=== PATIENT | female | born 1965 | race Caucasian/White ===

== ENCOUNTER → 2018-12-24 13:20 | Outpatient (CLI) | payer BC, SELFPAY ==
--- NOTE | 2018-12-24 13:30 | BI_ITS ---
MAMMOGRAPHY - BILATERAL SCREENING 3-D TOMOSYNTHESIS REASON FOR EXAM: Female, 53 years old. Bilateral Screening 3-D tomosynthesis PERTINENT HISTORY: Aunt with breast cancer.. TECHNIQUE: 2-D mammograms and 3-D Tomosynthesis of the breast (s) were performed. CAD was performed. COMPARISON: None. FINDINGS: The breast composition is heterogeneously dense that can obscure small breast masses. Scattered benign calcifications are seen. No dense spiculated masses or suspicious microcalcifications are identified. No architectural distortion is identified. There is no skin thickening or retraction. There has been no significant change since the prior study. BI/SCREEN MAMM (CAD) W/MARY BILAT IMPRESSION: No mammographic signs of malignancy. Routine yearly mammograms recommended. ASSESSMENT CATEGORY: BIRADS Category 1: Negative. A letter regarding these results will be sent to the patient by the facility within 30 days. FOLLOW UP RECOMMENDATION: Yearly follow up mammogram recommended. (A) Approximately 10% of breast cancers are not detected by mammography. A normal mammogram should not delay biopsy of a clinically suspicious abnormality. Electronically Signed: Charlie Schwab MD at 7:49 EDT , Service support ,
== END ==
PROVIDERS: Referring Provider Nurse Practitioner Women's Health; Visit Provider Nurse Practitioner Women's Health
DX: Z12.31 Encounter for screening mammogram for malignant neoplasm of breast (principal)
CPT/HCPCS: 77063; 77067

== ENCOUNTER → 2019-03-18 13:29 | Outpatient (CLI) | payer BC, SELFPAY ==
[2019-03-18 13:03] VITALS: BMI 35.3
[2019-03-18 13:57] LABS: Follicle Stimulating Hormone 73.7 mIU/mL
[2019-03-18 19:15] LABS: Chlamydia Trachomatis by PCR Negative (Negative); Neisserai gonorrhoeae by PCR Negative (Negative); Probe Check PASS; Sample Adequacy Control PASS; Specimen Processing Control PASS
== END ==
PROVIDERS: Referring Provider Nurse Practitioner Women's Health; Visit Provider Nurse Practitioner Women's Health
DX: N92.6 Irregular menstruation, unspecified (principal); N89.8 Other specified noninflammatory disorders of vagina
CPT/HCPCS: 36415; 83001; 87491; 87591

== ENCOUNTER → 2019-03-23 14:19 | Outpatient (CLI) | payer BC, SELFPAY ==
[2019-03-18 13:03] VITALS: BMI 35.3
--- NOTE | 2019-03-23 14:21 | US_ITS ---
STUDY: ULTRASOUND OF THE FEMALE PELVIS - COMPLETE REASON FOR EXAM: Female, 53 years old. Irregular menses. LMP: Unknown. TECHNIQUE: Transabdominal and Transvaginal TECHNICAL QUALITY: Adequate. COMPARISON: None. FINDINGS: The uterus is anteverted and is in a midline position. The uterus measures 9.2 x 5.0 x 4.2 cm. There is a Nabothian cyst of the cervix. The endometrium measures 3 mm in thickness, and is hyperechoic. There is no demonstrated endometrial mass. There is no demonstrated myometrial mass. I.U.D. - The patient does not have an I.U.D. The right ovary is not visualized. There is no visualized right adnexal mass or complex lesion. The left ovary is visualized. The left ovary measures 3.0 x 1.9 x 1.4 cm. There is no left ovarian cyst or ovarian mass. There is no visualized left adnexal mass or complex lesion. There is normal arterial and normal venous vascularity. There is no fluid in the cul-de-sac. The pre void volume of the bladder was to 83 ml. The urinary bladder is grossly normal. Polycystic ovary disease: No. US/Transvaginal Non- IMPRESSION: 1. Normal uterus and left ovary. 2. Nonvisualization of the right ovary. Electronically Signed: Donavon Paez DO at 23:49 EDT Tel [phone], Service support ,
--- NOTE | 2019-03-23 14:21 | US_ITS ---
STUDY: ULTRASOUND OF THE FEMALE PELVIS - COMPLETE REASON FOR EXAM: Female, 53 years old. Irregular menses. LMP: Unknown. TECHNIQUE: Transabdominal and Transvaginal TECHNICAL QUALITY: Adequate. COMPARISON: None. FINDINGS: The uterus is anteverted and is in a midline position. The uterus measures 9.2 x 5.0 x 4.2 cm. There is a Nabothian cyst of the cervix. The endometrium measures 3 mm in thickness, and is hyperechoic. There is no demonstrated endometrial mass. There is no demonstrated myometrial mass. I.U.D. - The patient does not have an I.U.D. The right ovary is not visualized. There is no visualized right adnexal mass or complex lesion. The left ovary is visualized. The left ovary measures 3.0 x 1.9 x 1.4 cm. There is no left ovarian cyst or ovarian mass. There is no visualized left adnexal mass or complex lesion. There is normal arterial and normal venous vascularity. There is no fluid in the cul-de-sac. The pre void volume of the bladder was to 83 ml. The urinary bladder is grossly normal. Polycystic ovary disease: No. US/Pelvic (Non ) IMPRESSION: 1. Normal uterus and left ovary. 2. Nonvisualization of the right ovary. Electronically Signed: Donavon Paez DO at 23:49 EDT Tel [phone], Service support ,
== END ==
PROVIDERS: Family Provider Internal Medicine; PCP Internal Medicine; Referring Provider Nurse Practitioner Women's Health; Visit Provider Nurse Practitioner Women's Health
DX: N92.6 Irregular menstruation, unspecified (principal)
CPT/HCPCS: 76830; 76856; 93976

== ENCOUNTER → 2019-04-01 14:15 | Outpatient (CLI) | payer BC, SELFPAY ==
[2019-04-01 14:02] VITALS: BMI 33.8
--- NOTE | 2019-04-01 14:15 | EMB_PTH ---
PATIENT: ELY BAILEY LOC: [facility] U#:[id number] AGE/SX: 59/F ROOM: RE04/01/[address]: KATY Bobo : 1965 BED: DIS: SPEC #: [id number] RECD: 04/01/19 16:50 STATUS: OLEG RELauren #: [id number] TANJA: 04/01/19 14:[address]: Jordyn Retana NP DEPT: SURGICAL PATHOLOGY RECD BY: Ministerio Allan ENTERED: 04/02/19 08:48 SP TYPE: ENDOM BX/C INDIO DR: Dr. Sabrina Odell MD Tissues: Endometrium, NOS Procedures: Surgery Specimen Level IV HEADER OPERATION: Endometrial biopsy PRE-OP DIAGNOSIS: Postmenopausal bleeding TISSUE SUBMITTED: Endometrial lining MICROSCOPIC DIAGNOSIS Endometrial lining, biopsy: Weakly proliferative to inactive endometrium with focal gland breakdown. Rare fragments of benign superficial endocervix. AM:vida 04/03/19 MICROSCOPIC DESCRIPTION Slides are reviewed. GROSS DESCRIPTION Received is one container labeled with the patient's name and not further designated. The specimen consists of multiple irregular fragments of light pink-pfeiffer soft tissue that in aggregate measure 2 x 0.6 x 0.1 cm. The specimen is totally submitted in one cassette. / AM:vida 04/02/19 TC:5 CPT: 49220
== END ==
PROVIDERS: Family Provider Internal Medicine; PCP Internal Medicine; Referring Provider Nurse Practitioner Women's Health; Visit Provider Nurse Practitioner Women's Health
DX: N95.0 Postmenopausal bleeding (principal)
CPT/HCPCS: 88305

== ENCOUNTER → 2020-03-21 | Outpatient (CLI) | payer BC, SELFPAY ==
[2020-03-21 14:57] VITALS: BMI 34.7
[2020-03-25 09:47] LABS: HPV APTIMA, High Risk Negative (Negative)
== END | disposition home or self-care (01) ==
PROVIDERS: PCP Internal Medicine; Visit Provider Obstetrics & Gynecology
DX: Z12.4 Encounter for screening for malignant neoplasm of cervix (principal)
CPT/HCPCS: 87624; 88175; G0145

== ENCOUNTER → 2020-06-14 17:30 | Outpatient (CLI) | payer BC, SELFPAY ==
[2020-03-21 14:57] VITALS: BMI 34.7
--- NOTE | 2020-06-14 16:42 | BI_ITS ---
MAMMOGRAPHY - BILATERAL SCREENING REASON FOR EXAM: Female, 55 years old. Routine annual screening examination. PERTINENT HISTORY: Sister with breast cancer. Aunt with breast cancer. TECHNIQUE: Digital bilateral breast mary (3D mammographic acquisition) in the CC and MLO projections. 2-D mediolateral oblique (MLO) and craniocaudad (CC) views of both breasts were obtained. CAD: Full Field Digital Mammography with Computer Added Detection was performed. COMPARISON: Comparison is made with prior examination dated 12/24/2018. FINDINGS: Breast Composition: The breasts are heterogeneously dense, which may obscure small masses. There are no dominant masses or suspicious calcifications. Stable small benign-appearing bilateral axillary lymph nodes. No other significant abnormalities are identified. There has been no significant change since the prior study. BI/SCREEN MAMM (CAD) W/MARY BILAT IMPRESSION: Stable bilateral screening mammogram. Yearly follow-up mammogram recommended. (A) ASSESSMENT CATEGORY: BIRADS Category 2: Benign. A letter regarding these results will be sent to the patient by the facility within 30 days. Approximately 10% of breast cancers are not detected by mammography. A normal mammogram should not delay biopsy of a clinically suspicious abnormality. [id number] Electronically Signed: Fish Song, at 8:41 EST , Service support ,
== END ==
PROVIDERS: PCP Internal Medicine; Referring Provider Obstetrics & Gynecology; Visit Provider Obstetrics & Gynecology
DX: Z12.31 Encounter for screening mammogram for malignant neoplasm of breast (principal); Z80.3 Family history of malignant neoplasm of breast
CPT/HCPCS: 77063; 77067

== ENCOUNTER → 2020-11-07 | Outpatient (CLI) | payer BC, SELFPAY ==
[2020-11-07 08:33] VITALS: BMI 34.7
--- NOTE | 2020-11-07 08:45 | EMB_PTH ---
PATIENT: ELY BAILEY [facility] U#:[id number] AGE/SX: 55/F ROOM: RE11/07/[address]: KATY Bobo : 1965 BED: DIS: 11/07/2020 SPEC #: [id number] RECD: 11/07/20 08:45 STATUS: OLEG RELauren #: [id number] TANJA: 11/07/20 08:[address]: Jordyn Retana NP DEPT: SURGICAL PATHOLOGY RECD BY: Suzette Canela ENTERED: 11/07/20 13:44 SP TYPE: ENDOM BX/C INDIO DR: Dr. Sabrina Odell MD Tissues: Endometrium, NOS Procedures: Surgery Specimen Level IV HEADER OPERATION: Endometrial biopsy PRE-OP DIAGNOSIS: PMB TISSUE SUBMITTED: Endometrial biopsy MICROSCOPIC DIAGNOSIS Endometrial biopsy: Proliferative endometrium. SJ:vida 11/08/2020 MICROSCOPIC DESCRIPTION Slides are reviewed. GROSS DESCRIPTION Received is one container labeled with the patient's name and not further designated. The specimen consists of multiple fragments of hemorrhagic soft tissue that in aggregate measure 2 x 1 x 0.2 cm. The specimen is totally submitted in one cassette. / SJ:vida 11/07/20 TC:4 CPT: 22796
== END | disposition home or self-care (01) ==
LOC: LABSPEC 12:48
PROVIDERS: PCP Internal Medicine; Visit Provider Nurse Practitioner Women's Health
DX: N95.0 Postmenopausal bleeding (principal)
CPT/HCPCS: 88305

== ENCOUNTER → 2020-11-09 10:40 | Outpatient (CLI) | payer BC, SELFPAY ==
[2020-11-07 08:33] VITALS: BMI 34.7
--- NOTE | 2020-11-09 10:43 | US_ITS ---
STUDY: ULTRASOUND OF THE FEMALE PELVIS - COMPLETE REASON FOR EXAM: Female, 55 years old. Bleeding LMP: The patient is perimenopausal. TECHNIQUE: Transabdominal and Transvaginal TECHNICAL QUALITY: Adequate. COMPARISON: Comparison is made with prior examination of 03/23/2019. FINDINGS: The uterus is anteverted and is in a midline position. The uterus measures 9.1 cm x 5.1 cm x 4.2 cm. There is a Nabothian cyst of the cervix. The endometrium is thickened and measures 8 mm in thickness, and is hyperechoic. There is no demonstrated endometrial mass. There is no demonstrated myometrial mass. I.U.D. - The patient does not have an I.U.D. The right ovary is visualized. The right ovary measures 3.4 cm x 3.2 cm x 1.5 cm. There is no right ovarian cyst or ovarian mass. There is no visualized right adnexal mass or complex lesion. There is normal arterial and normal venous vascularity. The left ovary is visualized. The left ovary measures 3.1 cm x 2.3 cm x 1.2 cm. There is no left ovarian cyst or ovarian mass. There is no visualized left adnexal mass or complex lesion. There is normal arterial and normal venous vascularity. There is no fluid in the cul-de-sac. The pre void volume of the bladder was 48.5 ml. US/Pelvic (Non ) IMPRESSION: Thickened endometrium Electronically Signed: Fish Song MD at 15:23 EDT , Service support ,
--- NOTE | 2020-11-09 10:43 | US_ITS ---
STUDY: ULTRASOUND OF THE FEMALE PELVIS - COMPLETE REASON FOR EXAM: Female, 55 years old. Bleeding LMP: The patient is perimenopausal. TECHNIQUE: Transabdominal and Transvaginal TECHNICAL QUALITY: Adequate. COMPARISON: Comparison is made with prior examination of 03/23/2019. FINDINGS: The uterus is anteverted and is in a midline position. The uterus measures 9.1 cm x 5.1 cm x 4.2 cm. There is a Nabothian cyst of the cervix. The endometrium is thickened and measures 8 mm in thickness, and is hyperechoic. There is no demonstrated endometrial mass. There is no demonstrated myometrial mass. I.U.D. - The patient does not have an I.U.D. The right ovary is visualized. The right ovary measures 3.4 cm x 3.2 cm x 1.5 cm. There is no right ovarian cyst or ovarian mass. There is no visualized right adnexal mass or complex lesion. There is normal arterial and normal venous vascularity. The left ovary is visualized. The left ovary measures 3.1 cm x 2.3 cm x 1.2 cm. There is no left ovarian cyst or ovarian mass. There is no visualized left adnexal mass or complex lesion. There is normal arterial and normal venous vascularity. There is no fluid in the cul-de-sac. The pre void volume of the bladder was 48.5 ml. US/Transvaginal Non- IMPRESSION: Thickened endometrium Electronically Signed: Fish Song MD at 15:23 EDT , Service support ,
== END ==
PROVIDERS: PCP Internal Medicine; Referring Provider Nurse Practitioner Women's Health; Visit Provider Nurse Practitioner Women's Health
DX: N95.0 Postmenopausal bleeding (principal)
CPT/HCPCS: 76830; 76856

== ENCOUNTER 2021-01-17 08:59 | Day surgery (SDC) | payer BC, SELFPAY ==
[2020-12-13 11:33] VITALS: BMI 34.7
--- NOTE | 2021-01-11 14:06 | EKG12_ITS ---
Test Reason : PRE OP Blood Pressure : / mmHG Vent. Rate : 070 BPM Atrial Rate : 070 BPM P-R Int : 162 ms QRS Dur : 090 ms QT Int : 434 ms P-R-T Axes : 038 -30 -23 degrees QTc Int : 468 ms Normal sinus rhythm Left axis deviation Nonspecific T wave abnormality Septal OH, age undetermined, cannot be excluded Abnormal ECG Confirmed by CINTHIA YBARRA, RADHA ([id number]), make up editor NEDA ROMERO ([id number]) on 01/12/2021 10:43:05 AM Referred By: Jackie Kessler Confirmed By:RADHA VICENTE MD
[2021-01-11 14:53] LABS: Absolute Lymphocyte Count 2.04 X10^3/uL (0.83-4.51); Absolute Neutrophil Count 3.9 X10^3/uL (2.0-7.7); Basophil# 0.03 X10^3/uL; Basophil% 0.5 % (0-1); Eosinophil# 0.13 X10^3/uL; Hemoglobin 13.1 g/dL (12.0-15.0); Lymphocyte # 2.04 X10^3/ul (0.83-4.51); Lymphocyte % 31.2 % (19-41); Mean Corp Hgb Conc 32.8 g/dL (32-36); Mean Corpuscular Hgb 29.8 pg (27.0-32.0); Mean Corpuscular Volume 91.1 fL (81-99); Mean Platelet Vol. 9.1 fl (6.2-12.0); Monocyte# 0.45 X10^3/uL; Monocyte% 6.9 % (0-10); NRBC Flagged by Analyzer 0 % (0-5); Neutrophil # 3.87 X10^3/uL (2.7-7.7); Neutrophil % 59.1 % (47-70); Platelet Count 370 K/mm3 (150-450); RBC Distribution Width CV 13.8 % (11.6-14.6); RBC Distribution Width SD 46.6 fl (35.1-43.9); Red Blood Count 4.39 M/mm3 (4.2-5.4); White Blood Count 6.5 K/mm3 (4.4-11.0)
[2021-01-11 15:38] LABS: ALB/GLOB Ratio 1.1 RATIO (0.9-2.4); AST(SGOT) 13 U/L (15-37); Alanine Aminotransfer ALT/SGPT 21 U/L (13-56); Alkaline Phosphatase 96 U/L (45-117); Anion Gap 6 (5-15); BUN 11 mg/dL (7-18); BUN/Creat Ratio 13.8 RATIO (10-20); Chloride 101 mmol/L (98-107); EST Glomerular Filtration Rate 79 mL/min (>60); Est Glom Filt Rate - Afr Amer 96 mL/min (>60); Globulin 3.7 g/dL (2.2-4.2); Glucose 111 mg/dL (74-106); Potassium 2.8 mmol/L (3.5-5.1); Protein, Total 7.7 g/dL (6.4-8.2); Sodium Level 138 mmol/L (136-145)
[2021-01-16 17:37] LABS: Potassium 3.1 mmol/L (3.5-5.1)
[2021-01-17] VITALS (8 sets, daily range): BP systolic 116–136; BP diastolic 72–99; PULSE 66–72; RESP 14–18; TEMP 36.3–36.7; O2SAT 93–100; BMI 34.7
--- NOTE | 2021-01-17 | EMB_PTH ---
PATIENT: ELY BAILEY LOC: [facility] U#:[id number] AGE/SX: 55/F ROOM: RE01/17/[address]: Dr. Jackie Kessler MD : 1965 BED: DIS: 01/17/2021 SPEC #: [id number] RECD: 01/17/21 12:14 STATUS: OLEG DOTSON #: [id number] TANJA: 01/17/21 00:[address]: Jackie Kessler DEPT: SURGICAL PATHOLOGY RECD BY: Jaime Boateng ENTERED: 01/17/21 12:14 SP TYPE: ENDOM BX/C OTHR DR: Dr. Sabrina Odell MD Tissues: Endometrium, NOS Procedures: Surgery Specimen Level IV HEADER OPERATION: Hysteroscopy, D & C Symphion, polypectomy PRE-OP DIAGNOSIS: Postmenopausal bleeding TISSUE SUBMITTED: Endometrial curettings and polyp MICROSCOPIC DIAGNOSIS Endometrial curettings and polyp, D & C and polypectomy: Polypoid fragments of endometrial tissue with simple endometrial hyperplasia without atypia. See comment. SJ:vida 01/18/2021 COMMENT Many of the fragments may represent fragments of endometrial polyp. Please make reference to previous specimen ([id number]) endometrial biopsy with diagnosis of ?proliferative endometrium.? Case has been reviewed in consultation with Dr. Mayo who concurs with the above diagnosis. IDC:AM MICROSCOPIC DESCRIPTION Slides are reviewed. GROSS DESCRIPTION Received in fixative is one container labeled with the patient's name and designated endometrial curettings and polyp. The specimen consists of multiple irregular fragments of light pink-pfeiffer soft tissue that in aggregate measure 3 x 2.5 x 0.2 cm. The specimen is totally submitted in one cassette. / AM:vida 01/17/21 TC:5 CPT: 68338
--- NOTE | 2021-01-17 07:35 | PCM.HP.BLA ---
History and Physical Date of Admission: 01/17/21 Intake Vital Signs 12/13/20 11:32 12/13/20 11:33 Height 5 ft 2 in Weight: 191 lb BMI 34.9 34.7 BP 118/70 Intake Visit Reasons: review u/s Chief Complaint: u/s results dx [facility] Director Client Services Required: No Is patient in pain?: No Allergies No Known Allergies Allergy (Verified 11/07/20 08:30) Medications fluticasone propionate 50 mcg/actuation nasal spray,suspension 1 spray INTRANASAL QDAY 11/28/17 [History Confirmed 12/13/20] hydrochlorothiazide 25 mg tablet 25 mg PO QAM 11/28/17 [History Confirmed 12/13/20] levocetirizine 5 mg tablet 5 mg PO QHS 11/28/17 [History Confirmed 12/13/20] levothyroxine 112 mcg tablet 112 mcg PO QDAY 11/28/17 [History Confirmed 12/13/20] metoprolol tartrate 50 mg tablet 50 mg PO BID 11/28/17 [History Confirmed 12/13/20] trazodone 50 mg tablet 50 mg PO QDAY 11/28/17 [History Confirmed 12/13/20] bupropion HCl 150 mg tablet,12 hr sustained-release 150 mg PO DAILY 03/21/20 [History Confirmed 12/13/20] venlafaxine 150 mg capsule,extended release 24 hr 150 mg PO QDAY #90 cap 06/22/20 [Rx Confirmed 12/13/20] potassium chloride 8 mEq tablet,extended release 8 meq PO DAILY 11/07/20 [History Confirmed 12/13/20] simvastatin 10 mg tablet 10 mg PO DAILY 11/07/20 [History Confirmed 12/13/20] Is last menstrual period known: No Post menopausal: Yes Patient : No : No [facility] Medical History (Updated 12/17/20 @ 09:[address] Jackie Kessler MD) Anxiety and depression Asthma Hypertension Hypothyroidism Migraines Obstructive sleep apnea Peptic ulcer disease Seasonal allergies Thyroid disorder Surgical History History of carpal tunnel surgery S/P bilateral foot surgery Family History Mother Hypertension Father Hypertension Congestive heart failure Sister Breast cancer Social History Smoking Status: Never smoker alcohol intake: current details: social substance use type: does not use caffeine: Yes what type of physical activity do you participate in: walking frequency: 1-2 times per week seatbelt use: always do you feel safe at home: Yes additional social history: [employer] Patient works at [employer] HPI review u/s Details: ELY BAILEY is a 55 year old who presents for postmenopausal bleeding. It has been several years since her last menses and she had menopausal symptoms therefore was diagnosed as being menopausal and then recently developed some vaginal bleeding. She was evaluated with an ultrasound which showed a thickened lining and endometrial biopsy showed proliferative endometrium and had an unclear diagnosis. She was referred by the nurse practitioner for surgical evaluation for complete sampling via D&C. Female Reproductive History Menopausal Symptoms: No night sweats Pregancy History 3 Elective abortions Hx Para 2 Spontaneous abortions Hx # Term Pregnancies Ectopic pregnancies Hx # Pregnancies Multiple births # of living children Past Pregnancies Del. Date Name GA/Weeks Outcome Route Bth Weight Gen Labor Lgth Anesthesia Del Locatn Provider FOB Unknown 1992 Carlos live - full term Unknown 2000 Denny live - full term ROS Const Constitutional: Denies fatigue, night sweats, weight gain or weight loss ENT ENT: Reports system reviewed and no additional complaints, except as documented Cardio Card: Denies chest pain Resp Resp: Denies cough or dyspnea GI GI: Reports as per HPI; Denies abdominal pain, constipation, nausea or vomiting : Denies nipple discharge, urinary frequency, urinary incontinence, urinary hesitancy, urinary urgency, vaginal discharge, vaginal dryness, vaginal odor or vaginal pruritus Musc Musc: Denies arthralgias, back pain or muscle weakness Skin Skin/Breast: Denies alopecia, change in hair, dry skin, breast mass, breast pain, breast skin changes or nipple discharge Neuro Neuro: Reports system reviewed and no additional complaints, except as documented Psych Psych: Reports system reviewed and no additional complaints, except as documented Endo Endo: Denies cold intolerance, excessive sweating, heat intolerance or polydipsia Julian/Lymph Hematologic/Lymphatic: Denies easy bleeding, Denies easy bruising and Denies lymphadenopathy Exam Const General: cooperative, healthy appearing, comfortable, no acute distress and well developed Orientation: alert HENMT Head: normal to inspection and normocephalic Ears: hearing grossly normal bilaterally and external ears normal Nose: external nose normal and nares normal Face and sinus: normal facial exam Neck Neck: normal visual inspection and no lymphadenopathy Thyroid: thyroid normal Chest Chest palpation & inspection: normal inspection of the chest Resp Effort & Inspection: normal respiratory effort Auscultation: clear to auscultation bilaterally Cardio Rate: regular rate Rhythm: regular rhythm Heart Sounds: S1 normal and S2 normal GI Inspection: normal to inspection and non-distended Palpation: soft and no hepatosplenomegaly Musc Other: gross motor intact no deficits, full bilateral strength Skin General: no rashes or lesions noted Neuro General: patient alert, patient awake, moves all extremities and no focal motor deficits Motor: muscle tone normal throughout Extrem General: normal to inspection and no pedal edema Psych Appearance: grossly normal Mental Status: mental status grossly normal Affect: normal affect Speech and Movement: speech and movement normal Coding Level of Care Code Off vis,new,level 4 Diagnoses Postmenopausal bleeding N95.0 Assessment and Plan Assessment and Plan (1) Postmenopausal bleeding: Status: Acute Comment: Plan D&C hysteroscopy, have symphion available. Plan - Dr. Jackie Kessler MD: After discussing the patient's diagnosis and treatment plan options, patient wishes to proceed with surgical management. I have discussed with the patient the risks, benefits, and alternatives of the procedure which include but are not limited to risks of anesthesia, bleeding, infection, possible damage to bowel, bladder, or surrounding vasculature which could lead to additional surgery to evaluate any complications. Patient agrees to procedure and wishes to proceed. ACOG/uptodate references given for additional information regarding procedure. UPDATE- I have seen the patient and performed any clinically relevant updates to the history and physical exam. Jackie Kessler MD
[2021-01-17] MEDS: Lactated Ringers 1,000 ML 100 ML IV (09:15)
--- NOTE | 2021-01-17 10:03 | OP.PCM_ITS ---
Problems Associated Problem List Diagnoses (1) Postmenopausal bleeding: Report of Operation Pre-Operative Diagnosis: see problem list Post-Operative Diagnosis: same Surgery/Procedure Performed:: D&C hysteroscopy symphion lead security officer: None Type of Anesthesia: Local MAC Special Medications: none Specimen's removed: EMC Drains: none Estimated Blood Loss (mL): 50 Fluids Replaced: crystalloid Description of Procedure: Patient was prepped and draped in a normal sterile fashion under MAC anesthesia. A weighted speculum was placed in the vagina and the anterior lip of the cervix was grasped with a single-tooth tenaculum. A paracervical block was placed with 1% lidocaine. Cervix was progressively dilated to allow passage of a 5 mm hysteroscope. The lining was fully visualized and noted to have a large polyp filling the entire lining. Uterine sounded to 8 cm. Using the symphion device, the polyp was progressively removed without complications. Direct visual curettage was performed using the device , and all specimens were sent to pathology. All instruments were removed from the vagina and excellent hemostasis was noted. Patient was awoken and taken to recovery in stable condition. Grafts/Implants Used: none Complications none Admit VTE Documentation VTE Present on Admission: No VTE Mechan Device Prophylaxis: SCD's Multi Select Codes Urinary/Genital Urinary/Genital CPT Codes: 03833 Hysteroscopy,EMC, Polypectomy
--- NOTE | 2021-01-17 10:06 | EX.PCM.DISCH ---
Discharge Instructions Procedure D&C Diet Discharge Diet: No restrictions Activity Discharge Activity: Return to Normal Activity, May Shower and May Take a Tub Bath (after 1 week) May resume sexual activity in: 1-2 weeks Weight Bearing Status: Weight bearing as tolerated Lifting Restrictions: none Dressing / Incision Call your doctor if you observe: Fever of 101 or Higher, Using more than 1 pad per hour, Shortness of breath and Uncontrolled pain Follow Up Care Please Follow Up With: Jackie Kessler MD When: Call [phone] to schedule appointment. Test Results: Test results from this visit will be discussed in further detail at your follow-up appointment, if applicable. Discharge Plan Admission Primary Reason for Your Visit: hysteroscopy Attending Provider: Jackie Kessler Primary Care Provider: Sabrina Odell Discharge Orders/Prescriptions Prescriptions: No Action metoprolol tartrate [Lopressor] 50 mg tablet 25 mg PO BID RF: 0 hydrochlorothiazide 25 mg tablet 25 mg PO QAM RF: 0 levothyroxine [Synthroid] 112 mcg tablet 112 mcg PO QDAY RF: 0 trazodone 50 mg tablet 50 mg PO QDAY RF: 0 levocetirizine [Xyzal] 5 mg tablet 5 mg PO QHS RF: 0 fluticasone propionate 50 mcg/actuation spray,suspension 1 spray INTRANASAL QDAY RF: 0 bupropion HCl [Wellbutrin SR] 150 mg tablet sustained-release 12 hr 300 mg PO DAILY RF: 0 potassium chloride 8 mEq tablet extended release 10 meq PO DAILY RF: 0 simvastatin [Zocor] 10 mg tablet 20 mg PO DAILY RF: 0 lisinopril 30 mg Tablet 30 mg PO DAILY RF: 0 albuterol 90 mcg/actuation Aerosol 90 mcg INHALATION PRN PRN (Reason: ASTHMA) RF: 0 venlafaxine [Effexor XR] 150 mg capsule,extended release 24hr 150 mg PO QDAY Qty: 90 RF: 3 Referrals / Follow Up: Sabrina Odell MD [Primary Care Provider] - Jackie Kessler MD [STAFF PHYSICIAN] - Disposition Disposition (needs filled in before D/C Order can be placed): Home, Self Care
[2021-01-17] MEDS: Lidocaine 1% (20 ml mdv) 20 ML Vial (10:16)
[2021-01-17] MEDS: Acetaminophen 500 MG Tablet 1000 MG PO (11:37)
== END 2021-01-17 12:02 | disposition home or self-care (01) ==
LOC: SDC 09:00 → AC 09:01
PROVIDERS: Anesthesiology; PCP Internal Medicine; Referring Provider Obstetrics & Gynecology; Visit Provider Obstetrics & Gynecology
PROC: 0UDB8ZZ Extraction of Endometrium, Via Natural or Artificial Opening Endoscopic (ICD-10-PCS; CPT 58558; principal; 2021-01-17 10:10)
DX: N95.0 Postmenopausal bleeding (principal); N85.01 Benign endometrial hyperplasia; I10 Essential (primary) hypertension; E03.9 Hypothyroidism, unspecified; F32.9 Major depressive disorder, single episode, unspecified; F41.9 Anxiety disorder, unspecified; Z79.899 Other long term (current) drug therapy
CPT/HCPCS: 00952; 58558; 36415; 80053; 84132; 85025; 86850; 86900; 86901; 88305; 93005; J7120; J2405

== ENCOUNTER 2021-06-28 16:45 | Outpatient (CLI) | payer BC, SELFPAY | END 2021-06-28 23:59 | disposition short-term general hospital (02) | LOC: LABSPEC 16:49 | PROVIDERS: PCP Internal Medicine; Visit Provider Nurse Practitioner Women's Health | DX: N76.0 Acute vaginitis (principal) | CPT/HCPCS: 87070; 87205 ==

== ENCOUNTER 2021-07-24 12:53 | Outpatient (CLI) | payer BC, SELFPAY ==
--- NOTE | 2021-07-24 12:57 | BI_ITS ---
MAMMOGRAPHY - BILATERAL SCREENING REASON FOR EXAM: Female, 56 years old. Routine annual screening examination. PERTINENT HISTORY: Sister with breast cancer. Aunt with breast cancer. TECHNIQUE: Digital bilateral breast mary (3D mammographic acquisition) in the CC and MLO projections. 2-D mediolateral oblique (MLO) and craniocaudad (CC) views of both breasts were obtained. CAD: Full Field Digital Mammography with Computer Added Detection was performed. COMPARISON: Comparison is made with prior study dated 06/14/2020 and 12/24/2018. FINDINGS: Breast Composition: The breasts are heterogeneously dense, which may obscure small masses. There are no dominant masses or suspicious calcifications. Stable benign-appearing bilateral axillary lymph nodes. No other significant abnormalities are identified. There has been no significant change since the prior study. BI/SCRN MAMM (CAD)W/MARY BILAT IMPRESSION: Stable bilateral screening mammogram. Yearly follow-up mammogram recommended. (A) ASSESSMENT CATEGORY: BIRADS Category 2: Benign. A letter regarding these results will be sent to the patient by the facility within 30 days. Approximately 10% of breast cancers are not detected by mammography. A normal mammogram should not delay biopsy of a clinically suspicious abnormality. [id number] Electronically Signed: Fish Song MD at 14:35 EST ,
== END 2021-07-24 23:59 | disposition home or self-care (01) ==
LOC: OPBI 12:55
PROVIDERS: PCP Internal Medicine; Visit Provider Obstetrics & Gynecology
DX: Z12.31 Encounter for screening mammogram for malignant neoplasm of breast (principal); Z80.3 Family history of malignant neoplasm of breast
CPT/HCPCS: 77063; 77067

== ENCOUNTER 2021-08-16 13:01 | Outpatient (CLI) | payer BC, SELFPAY ==
--- NOTE | 2021-08-16 13:04 | US_ITS ---
INDICATION: endo hyperplasia EXAMINATION: Ultrasound US Transvaginal Non-OB TECHNIQUE: Transvaginal (for optimal evaluation of the adnexa) pelvic ultrasound was performed. Grayscale, spectral waveform, and color flow Doppler evaluation of the adnexa. COMPARISON: Pelvis ultrasound from 11/09/2020. FINDINGS: UTERUS: Anteverted. The uterus measures 7.5 x 3.9 x 3.5 cm. There is no uterine mass. The endometrial stripe measures 3 mm in AP diameter which is within normal limits. RIGHT OVARY: Not visualized due to overlying structures. No right adnexal masses. LEFT OVARY: 2.1 x 1.3 x 1.6 cm. Non-enlarged, normal echogenicity. There is normal arterial inflow and venous outflow present in the left ovary. No left adnexal mass. FREE FLUID: None. US/Pelvic (Non ) IMPRESSION: Normal appearance of the endometrium on this study. Right ovary not visualized. The remainder of the exam is unremarkable. Electronically Signed: Guillermo Centeno, at 14:40 EDT ,
--- NOTE | 2021-08-16 13:04 | US_ITS ---
INDICATION: endo hyperplasia EXAMINATION: Ultrasound US Transvaginal Non-OB TECHNIQUE: Transvaginal (for optimal evaluation of the adnexa) pelvic ultrasound was performed. Grayscale, spectral waveform, and color flow Doppler evaluation of the adnexa. COMPARISON: Pelvis ultrasound from 11/09/2020. FINDINGS: UTERUS: Anteverted. The uterus measures 7.5 x 3.9 x 3.5 cm. There is no uterine mass. The endometrial stripe measures 3 mm in AP diameter which is within normal limits. RIGHT OVARY: Not visualized due to overlying structures. No right adnexal masses. LEFT OVARY: 2.1 x 1.3 x 1.6 cm. Non-enlarged, normal echogenicity. There is normal arterial inflow and venous outflow present in the left ovary. No left adnexal mass. FREE FLUID: None. US/Transvaginal Non- IMPRESSION: Normal appearance of the endometrium on this study. Right ovary not visualized. The remainder of the exam is unremarkable. Electronically Signed: Guillermo Centeno, at 14:40 EDT ,
== END 2021-08-16 23:59 | disposition home or self-care (01) ==
LOC: US 13:03
PROVIDERS: PCP Internal Medicine; Referring Provider Obstetrics & Gynecology; Visit Provider Obstetrics & Gynecology
DX: N85.01 Benign endometrial hyperplasia (principal)
CPT/HCPCS: 76830; 76856

== ENCOUNTER → 2022-09-20 | Outpatient (CLI) | payer BC, SELFPAY ==
--- NOTE | 2022-09-20 16:53 | BI_ITS ---
MAMMOGRAPHY - BILATERAL SCREENING REASON FOR EXAM: Female, 57 years old. Routine annual screening examination. PERTINENT HISTORY: Sister with breast cancer. Aunt with breast cancer. TECHNIQUE: Digital bilateral breast mary (3D mammographic acquisition) in the CC and MLO projections. 2-D mediolateral oblique (MLO) and craniocaudad (CC) views of both breasts were obtained. CAD: Full Field Digital Mammography with Computer Added Detection was performed. COMPARISON: Comparison is made with prior study of July 24, 2021 and June 14, 2020. FINDINGS: Breast Composition: The breasts are heterogeneously dense, which may obscure small masses. There are no dominant masses or suspicious calcifications. Stable small benign-appearing bilateral axillary lymph nodes. No other significant abnormalities are identified. There has been no significant change since the prior study. BI/SCRN MAMM (CAD)W/MARY BILAT IMPRESSION: Stable bilateral screening mammogram. Yearly follow-up mammogram recommended. (A) ASSESSMENT CATEGORY: BIRADS Category 2: Benign. A letter regarding these results will be sent to the patient by the facility within 30 days. Approximately 10% of breast cancers are not detected by mammography. A normal mammogram should not delay biopsy of a clinically suspicious abnormality. [id number] Electronically Signed: Fish Song MD at 8:49 EDT ,
== END | disposition home or self-care (01) ==
LOC: OPBI 09-21 07:29
PROVIDERS: PCP Internal Medicine; Referring Provider Nurse Practitioner Women's Health; Visit Provider Nurse Practitioner Women's Health
DX: Z12.31 Encounter for screening mammogram for malignant neoplasm of breast (principal)
CPT/HCPCS: 77063; 77067

== ENCOUNTER → 2023-10-02 | Outpatient (CLI) | payer BC, SELFPAY ==
--- NOTE | 2023-10-02 | EMB_PTH ---
PATIENT: ELY BAILEY LOC: [facility]#:[id number] AGE/SX: 58/F ROOM: RE10/02/[address]: KATY Bobo : 1965 BED: DIS: 10/02/2023 SPEC #: [id number] RECD: 10/02/23 12:13 STATUS: OLEG RELauren #: [id number] TANJA: 10/02/23 00:[address]: Jordyn Retana NP DEPT: SURGICAL PATHOLOGY RECD BY: Jamie Boateng ENTERED: 10/02/23 12:13 SP TYPE: ENDOM BX/C INDIO DR: Dr. Sabrina Odell MD Tissues: Endometrium, NOS Procedures: Surgery Specimen Level IV HEADER OPERATION: Endometrial biopsy PRE-OP DIAGNOSIS: Post-menopausal bleeding, history of simple hyperplasia without atypia TISSUE SUBMITTED: Endometrial lining MICROSCOPIC DIAGNOSIS Endometrium, biopsy: Scant strips of benign glandular mucosa . AM/mr 10/03/23 MICROSCOPIC DESCRIPTION Slides are reviewed. GROSS DESCRIPTION Received is one container labeled with the patient's name and not further designated. The specimen consists of light pfeiffer mucoid material aggregating to 1.5 x 1.0 x <0.1cm. The specimen is totally submitted in one cassette. AM/mr 10/02/23 TC:5 CPT:77968
== END | disposition home or self-care (01) ==
LOC: LABSPEC 11:56
PROVIDERS: PCP Internal Medicine; Referring Provider Nurse Practitioner Women's Health; Visit Provider Nurse Practitioner Women's Health
DX: N95.0 Postmenopausal bleeding (principal)
CPT/HCPCS: 88305

== ENCOUNTER → 2024-06-08 | Outpatient (CLI) | payer SELFPAY ==
--- NOTE | 2024-06-08 | EMB_PTH ---
PATIENT: ELY BAILEY LOC: [facility] U#:[id number] AGE/SX: 59/F ROOM: RE06/08/[address]: KATY Bobo : 1965 BED: DIS: 06/08/2024 SPEC #: [id number] RECD: 06/08/24 13:17 STATUS: OLEG SCHMIDLauren #: [id number] TANJA: 06/08/24 00:[address]: Jordyn Retana NP DEPT: SURGICAL PATHOLOGY RECD BY: Jamie Boateng ENTERED: 06/08/24 13:18 SP TYPE: ENDOM BX/C INDIO DR: Dr. Sabrina Odell MD Tissues: Endometrium, NOS Procedures: Surgery Specimen Level IV HEADER OPERATION: Endometrial biopsy PRE-OP DIAGNOSIS: Post menopausal bleeding TISSUE SUBMITTED: Endometrial lining MICROSCOPIC DIAGNOSIS Endometrial biopsy: Fragments of benign endometrial epithelium. Fragments of benign ecto and endocervical epithelium. See comment. SJ.mr 06/09/2024 COMMENT Clinical correlation and appropriate follow up are necessary. MICROSCOPIC DESCRIPTION Slides are reviewed. GROSS DESCRIPTION Received in fixative is one container labeled with the patient's name and designated Endometrial biopsy. The specimen consists of a scant amount of soft tissue. The specimen is totally submitted for cell block preparation. 06/08/2024 TC:4 CPT:81104
[2024-06-10 17:07] LABS: HPV APTIMA, High Risk Negative (Negative)
== END | disposition home or self-care (01) ==
LOC: LABSPEC 11:51
PROVIDERS: PCP Internal Medicine; Referring Provider Nurse Practitioner Women's Health; Visit Provider Nurse Practitioner Women's Health
DX: Z12.4 Encounter for screening for malignant neoplasm of cervix (principal); N95.0 Postmenopausal bleeding
CPT/HCPCS: 87624; 88175; 88305; G0145